=== PATIENT | female | born 1960 ===

== ENCOUNTER 2022-01-08 16:41 | Emergency (ER) | payer MEDICARE, BC ==
[2022-01-08] MEDS ORDERED: Sodium Chloride 0.9% 1,000 ML IV ONE (17:03)
[2022-01-08 18:04] LABS: CARBON DIOXIDE,CO2 28.6 mmol/L (21.0-32.0); POTASSIUM,K 3.6 mmol/L (3.5-5.1)
[2022-01-08] MEDS ORDERED: Iopamidol 755 MG/ML 500 ML Multipack Bottle IVPUSH STA (18:43)
== END 2022-01-08 21:10 | disposition home or self-care (01) ==
LOC: MW.ED 16:41
DX: K85.90 Acute pancreatitis without necrosis or infection, unspecified (principal); K81.9 Cholecystitis, unspecified
CPT/HCPCS: 36415; 74177; 76705; 80053; 81001; 83690; 84484; 85025; 87086; 96360; 99284; J7030; Q9967